=== PATIENT | female | born 1950 | race Caucasian/White ===

== ENCOUNTER 2025-02-08 11:45 | Outpatient (CLI) | payer OTHER, SELFPAY ==
--- NOTE | 2025-02-08 12:15 | CRLHL7_ITS ---
For Patients: As a result of the Century Cures Act, medical imaging exams and procedure reports are released immediately into your electronic medical record. You may view this report before your referring provider. If you have questions, please contact your health care provider. INDICATION: Low back pain. COMPARISON: 02/06/2025. Technique Sagittal T1, T2, and STIR sequences. Axial T1 and T2 weighted sequences. FINDINGS: Degenerative anterolisthesis of L4 on L5 measures approximately 4 mm. Grade 1 anterolisthesis of L5 on S1 measures approximate 5 mm. Otherwise, normal alignment. No fractures. No vertebral body loss of height. No ligamentous injury. No suspicious osseous lesions. Normal conus terminates at L1-2. [id number] L1-2: No spinal canal or neural foraminal narrowing. L2-3: Disc degeneration and posterior disc bulge. No narrowing of spinal canal. No neural foraminal narrowing. L3-4: Disc degeneration. Diffuse disc bulge. No narrowing of spinal canal. No neural foraminal narrowing. Mild facet arthropathy. L4-5: Disc degeneration and posterior disc bulge. Mild narrowing of the spinal canal. No neural foraminal narrowing. Mild os arthropathy. L5-S1: Grade 1 anterolisthesis. Disc generation unroofed posterior disc bulge. No narrowing of spinal canal. Oblique orientation of bilateral foramina with moderate right neural foraminal narrowing. No narrowing of the left neural foramen. Mild facet arthropathy. Degenerative changes of the SI joints. IMPRESSION: 1. Degenerative anterolisthesis of L4 on L5. Grade 1 anterolisthesis of L5 on S1. 2. Otherwise, normal alignment. No fractures 3. At L4-5, mild narrowing of the spinal canal. 4. At L5-S1, moderate narrowing of the right neural foramen Dictated by Haider Yee MD @ 02/09/2025 3:13:58 PM (Electronically Signed)
== END 2025-02-08 11:46 | disposition home or self-care (01) ==
LOC: MRI 11:46
PROVIDERS: Visit Provider Orthopaedic Surgery Sports Medicine
DX: M79.605 Pain in left leg (principal); M51.26 Other intervertebral disc displacement, lumbar region; M51.27 Other intervertebral disc displacement, lumbosacral region
CPT/HCPCS: 72148